=== PATIENT | female | born 1980 | race American Indian/Alaskan Native ===

== ENCOUNTER 2017-03-26 22:49 | Emergency (ER) | payer OTHER, BC ==
[2017-03-26 23:04] VITALS: BP 127/72; PULSE 75; RESP 16; TEMP 98.3; O2SAT 98
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
[2017-03-27] MEDS ORDERED: Propofol 10 mg/ml 1,000 MG/100 ML VIAL ONE (11:35)
== END 2017-03-27 01:35 | disposition home or self-care (01) ==
LOC: H.ER 22:49
DX: S16.1XXA Strain of muscle, fascia and tendon at neck level, initial encounter (principal); S46.912A Strain of unspecified muscle, fascia and tendon at shoulder and upper arm level, left arm, initial encounter; M79.602 Pain in left arm; V03.10XA Pedestrian on foot injured in collision with car, pick-up truck or van in traffic accident, initial encounter; Y92.410 Unspecified street and highway as the place of occurrence of the external cause
CPT/HCPCS: 72050; 73030; 73060; 73080; 81025; 96372; 99283; J1885

== ENCOUNTER 2017-07-10 22:25 | Emergency (ER) | payer BC, OTHER ==
[2017-07-10 22:38] VITALS: TEMP 98.2; O2SAT 100
--- NOTE | 2017-07-10 23:45 | CT ---
EXAM: CT Head Without Intravenous Contrast CLINICAL HISTORY: 36 years old, female; Pain; Headache; Additional info: Headache and dizzines TECHNIQUE: Axial computed tomography images of the head/brain without intravenous contrast. All CT scans at this facility use one or more dose reduction techniques, viz.: automated exposure control; ma/kV adjustment per patient size (including targeted exams where dose is matched to indication; i.e. head); or iterative reconstruction technique. Coronal and sagittal reformatted images were created and reviewed. COMPARISON: No relevant prior studies available. FINDINGS: Brain: Unremarkable. No significant white matter disease. No edema. No intracranial mass, mass effect, or midline shift. Ventricles: Unremarkable. No ventriculomegaly. Bones/joints: Unremarkable. No acute fracture. Soft tissues: Unremarkable. Sinuses: Unremarkable as visualized. No acute sinusitis. Mastoid air cells: Unremarkable as visualized. No mastoid effusion. IMPRESSION: No acute intracranial abnormality.
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
[2017-07-11 00:18] VITALS: BP 128/76; PULSE 79; RESP 20
== END 2017-07-11 00:21 | disposition home or self-care (01) ==
LOC: H.ER 22:25
DX: S09.90XA Unspecified injury of head, initial encounter (principal); Y04.0XXA Assault by unarmed brawl or fight, initial encounter; Y99.0 Civilian activity done for income or pay